=== PATIENT | male | born 1960 | race Caucasian/White ===

== ENCOUNTER 2023-06-30 22:26 | Emergency (ER) | payer OTHER ==
[~2023-06-30] VITALS: Ht 177.8 cm; Wt 83.9 kg
[~2023-06-30 22:26] MED LIST: Bactrim Ds Tab1 EACH PO; CEPH500 PO; COLC.6 PO; COLCRYS0.6 MG PO; GOUT MED; HYDACE5 PO; IBUP600 PO; IBUP800 PO; LISI20 PO; NAPR500 PO; NAPR550 PO; TRAZ150T57 PO; Ultram50 MG PO
[2023-06-30 22:41] VITALS: BP 170/106
== END 2023-07-01 00:35 | disposition home or self-care (01) ==
LOC: ER 22:26
DX: S01.01XA Laceration without foreign body of scalp, initial encounter (principal); W22.8XXA Striking against or struck by other objects, initial encounter; Z79.899 Other long term (current) drug therapy; I10 Essential (primary) hypertension; E78.00 Pure hypercholesterolemia, unspecified; M10.9 Gout, unspecified; F17.210 Nicotine dependence, cigarettes, uncomplicated
CPT/HCPCS: 12004; 90471; 90714; 99282-25; A9270